=== PATIENT | male | born 1990 | race Caucasian/White ===

== ENCOUNTER 2020-06-15 01:08 | Emergency (ER) | payer MEDICAID, SELFPAY ==
[2020-06-15 01:44] VITALS: BP 135/88; BP 141/98; PULSE 109; PULSE 99; RESP 16; TEMP 36.3; O2SAT 92; BMI 33.4
--- NOTE | 2020-06-15 01:55 | ECG_ITS ---
Test Reason : OVERDOSE Blood Pressure : / mmHG Vent. Rate : 089 BPM Atrial Rate : 089 BPM P-R Int : 164 ms QRS Dur : 120 ms QT Int : 390 ms P-R-T Axes : 017 029 027 degrees QTc Int : 474 ms Normal sinus rhythm Non-specific intra-ventricular conduction delay Borderline ECG No previous ECGs available Referred By: Generic ED Physician Electronically Signed By:Bhavesh Barajas
[2020-06-15 02:10] LABS: Basophils Absolute Auto 0.1 X10*3/uL (0.0-0.2); Basophils Percent Auto 1.1 % (0-2); Eosinophils Absolute Auto 0.2 X10*3/uL (0.0-0.4); Eosinophils Percent Auto 1.6 % (0-4); Hematocrit 44.2 % (42-52); Hemoglobin 15.9 g/dl (14.0-18.0); Imm Gran Abs Auto 0.05 X10*3/uL (0.00-0.03); Imm Gran Pct Auto 0.5 % (0.0-0.4); Lymphocytes Absolute Auto 2.8 X10*3/uL (1.2-4.9); Lymphocytes Percent Auto 26.9 % (20-40); MANUAL DIFF FLAG NO; Mean Corpuscular Hemoglobin 30.5 pg (27.0-33.0); Mean Corpuscular Volume 84.8 fL (80-98); Mean Platelet Volume 11.3 fL (9.4-12.4); Monocytes Absolute Auto 0.9 X10*3/uL (0.1-1.2); Monocytes Percent Auto 8.4 % (2-11); Neutrophils Absolute Auto 6.4 X10*3/uL (2.0-8.3); Neutrophils Percent Auto 61.5 % (45-73); Platelet Count 241 X10*3/uL (160-400); Red Blood Count 5.21 X10*6/uL (4.60-5.80); Red Cell Distribution Width 12.5 % (11.0-16.0); White Blood Count 10.3 X10*3/uL (4.8-10.8)
[2020-06-15 02:36] LABS: Anion Gap 15 (12-20); Blood Urea Nitrogen 13 mg/dL (9-16); Calcium 8.8 mg/dL (8.4-10.2); Carbon Dioxide 21 mmol/L (22-29); Chloride 106 mmol/L (96-108); Creatinine Clr Calc Pharmacy 147.2; Estimated Glomerular Filt Rate > 60; Glucose Random 96 mg/dL (60-115); Sodium 138 mmol/L (135-145)
[2020-06-15 03:54] VITALS: BP 124/78; PULSE 86; RESP 14; O2SAT 95
[2020-06-15 04:16] LABS: Acetaminophen LAB < 1 mcg/mL (<30); Salicylate < 5.0 mg/dL (15-30)
--- NOTE | 2020-06-15 04:28 | ED_ITS ---
HPI - General Adult General Chief complaint: General Medical Stated complaint: od Time Seen by Provider: 06/15/20 03:29 Source: patient Mode of arrival: ambulatory Limitations: no limitations History of Present Illness HPI narrative: Patient comes to emergency room complaining oxyntic looking and extra Trileptal tablets of 200 mg and an additional nortriptyline tablet for 25 mg. Patient states that he lives alone, it was Biaxin, denies suicidal homicidal ideation, denies any symptoms. complaint: Accidental medication intake Related Data Allergies Allergy/AdvReac Type Severity Reaction Status Date / Time codeine [CODEINE] Allergy Unknown UNKNOWN Unverified 11/16/19 16:11 ibuprofen [From MOTRIN] Allergy Unknown UNKNOWN Unverified 11/16/19 16:11 Review of Systems Review of Systems: Constitutional : No Weight loss, No Fever, No Chills, No Night Sweats, No Fatigue, No Malaise ENT/Mouth : No Hearing loss, No Ear Pain, No Nasal Congestion, No Sinus Pain, No Hoarseness, No sore throat, No Rhinorrhea, No Swallowing Difficulty Eyes: No Eye Pain, No Swelling, No Redness, No Foreign Body, No Discharge, No Vision Changes Cardiovascular : No Chest Pain, No SOB, No Dyspnea on Exertion, No Orthopnea, No Edema, No Palpitations Respiratory : No Cough, No Sputum, No Wheezing, No Smoke Exposure, No Dyspnea Gastrointestinal : No Nausea, No Vomiting, No Diarrhea, No Constipation, No abdominal Pain, No Hematochezia, No Melena Genitourinary : no irregular bleeding, No Dysuria, No Urinary Frequency, No Hematuria, No Urinary Incontinence, No Urgency, No Flank Pain, No Urinary Flow Changes, No Hesitancy Musculoskeletal : No joint pain, No Myalgias, No Joint Swelling Skin : No Skin Lesions, No rash Neuro : No Weakness, No Numbness, No Paresthesias, No Loss of Consciousness, No Dizziness, No Headache Psych : No Anxiety/Panic, No Depression, No SI/HI/AH/VH, No Social Issues, Heme/Lymph: No Bruising, No Bleeding,No Lymphadenopathy Endocrine : No Polyuria, No Polydipsia, No Temperature Intolerance PMFSH Past Medical History Medical History Anxiety Autism Depression Social History Social History Advance Directives: No Advance Directives Information Provided: No Physical Exam Vital Signs: Vital Signs: Last Vital Signs Temp 97.4 F 06/15/20 01:44 Pulse 86 06/15/20 03:54 Resp 14 06/15/20 03:54 BP 124/78 06/15/20 03:54 Pulse Ox 95 06/15/20 03:54 Body Mass Index 33.4 Appearance: Alert. Oriented X3. No acute distress. Eyes: Pupils equal, round and reactive to light. ENT: Pharynx normal. Neck: Normal inspection. Neck supple. No lymph nodes noted. No crepitus CVS: Normal heart rate and rhythm. Pulses normal. Normal S1 and S2 Respiratory: No respiratory distress. Breath sounds normal. No Wheezing. No rales Abdomen: Soft and nontender. No rigidity. No distention. good BS x4 Skin: Skin warm and dry. Normal skin color. Normal skin turgor. Extremities: No lower extremity edema. No lower extremity edema. No Lacerations. No Rash Neuro: Oriented X 3. No motor deficit. No sensory deficit. Moving all extermities. No slurred speech. Course Course Course Narrative: I discussed the labs with the patient, acute findings. Patient will be discharged home. Medical Decision Making Lab Data Result diagrams: 06/15/20 02:05 06/15/20 02:05 Labs: Lab Results 06/15/20 06/15/20 06/15/20 Range/Units 02:05 02:05 02:05 WBC 10.3 (4.8-10.8) X10*3/uL RBC 5.21 (4.60-5.80) X10*6/uL Hgb 15.9 (14.0-18.0) g/dl Hct 44.2 (42-52) % MCV 84.8 (80-98) fL MCH 30.5 (27.0-33.0) pg MCHC 36.0 (31.0-36.0) g/dl RDW 12.5 (11.0-16.0) % Plt Count 241 (160-400) X10*3/uL MPV 11.3 (9.4-12.4) fL Immature Gran % (Auto) 0.5 H (0.0-0.4) % Neut % (Auto) 61.5 (45-73) % Lymph % (Auto) 26.9 (20-40) % [place] % (Auto) 8.4 (2-11) % Eos % (Auto) 1.6 (0-4) % Baso % (Auto) 1.1 (0-2) % Lymph # (Auto) 2.8 (1.2-4.9) X10*3/uL [place] # (Auto) 0.9 (0.1-1.2) X10*3/uL Eos # (Auto) 0.2 (0.0-0.4) X10*3/uL Baso # (Auto) 0.1 (0.0-0.2) X10*3/uL Abs Immat Gran (auto) 0.05 H (0.00-0.03) X10*3/uL Absolute Neuts (auto) 6.4 (2.0-8.3) X10*3/uL Absolute Nucleated RBC 0.000 (0.0-0.012) X10*3/uL Nucleated RBC % (auto) 0.0 (0.0-0.2) /100WBC Hold Blue Top SEE NOTE Sodium 138 (135-145) mmol/L Potassium 4.0 (3.3-5.1) mmol/L Chloride 106 (96-108) mmol/L Carbon Dioxide 21 L (22-29) mmol/L Anion Gap 15 (12-20) BUN 13 (9-16) mg/dL Creatinine 0.84 (0.5-1.4) mg/dL Estim Creat Clear Calc 147.2 Estimated GFR > 60 Random Glucose 96 (60-115) mg/dL Calcium 8.8 (8.4-10.2) mg/dL Salicylates < 5.0 L (15-30) mg/dL Acetaminophen < 1 (<30) mcg/mL ECG Data Attestation: I personally reviewed and interpreted this ECG as follows: (Sinus rhythm, heart rate 89, no ST segment depression or elevation, no T-wave inversion)
[2020-06-15 05:00] VITALS: BP 135/68; PULSE 93; RESP 13; O2SAT 96
[2020-06-15] MEDS: 0.9 % Sodium Chloride 1,000 ML 999 ML IV (05:04)
== END 2020-06-15 07:47 | disposition left against medical advice (07) ==
PROVIDERS: Emergency Provider Emergency Medicine
DX: T42.1X1A Poisoning by iminostilbenes, accidental (unintentional), initial encounter (principal); Y92.9 Unspecified place or not applicable; Z79.899 Other long term (current) drug therapy
CPT/HCPCS: 36415; 80048; 80143; 80179; 85025; 93005; 96360; 99284

== ENCOUNTER 2020-08-14 10:04 | Emergency (ER) | payer MEDICAID, SELFPAY ==
[2020-08-14 10:06] VITALS: BP 154/99; PULSE 104; RESP 20; TEMP 36.6; O2SAT 98; BMI 33.2
--- NOTE | 2020-08-14 11:00 | ED.PSYCH ---
HPI - Psych General Chief Complaint: Psychiatric Symptoms Stated Complaint: crisis Time Seen by Provider: 08/14/20 11:00 Source: patient Mode of arrival: ambulatory Limitations: no limitations History of Present Illness MD complaint: feels depressed and other (anxiety) Onset (ago): day(s) (1.5) Duration: constant History of same: Yes Relieving factors: none Exacerbating factors: other (states his mom's mood triggered him) Context: significant life stressor Associated psychiatric symptoms: depression Associated symptoms: denies other symptoms Treatments prior to arrival: none Related Data Home Medications Medication Instructions Recorded Confirmed clonidine HCl 1 tab PO TID 08/14/20 08/14/20 nortriptyline 2 cap PO DAILY 08/14/20 08/14/20 oxcarbazepine 1 tab PO TID 08/14/20 08/14/20 venlafaxine 1 cap PO DAILY 08/14/20 08/14/20 zolpidem 1 tab PO BEDTIME 08/14/20 08/14/20 Allergies Allergy/AdvReac Type Severity Reaction Status Date / Time codeine [CODEINE] Allergy Unknown UNKNOWN Verified 08/14/20 10:13 ibuprofen [From MOTRIN] Allergy Unknown UNKNOWN Verified 08/14/20 10:13 Review of Systems Review of Systems: Constitutional : No Fever, No Chills ENT/Mouth : No Ear Pain, No Nasal Congestion, No sore throat Eyes: No Eye Pain, No Swelling, No Redness Cardiovascular : No Chest Pain, No SOB Respiratory : No Cough, No Sputum, No Dyspnea Gastrointestinal : No Nausea, No Vomiting, No Diarrhea, No Hematochezia, No Melena Genitourinary : No Dysuria, No Urinary Frequency, No Hematuria Musculoskeletal : No Myalgias Skin : No Skin Lesions, No rash Neuro : No Weakness, No Numbness, No Paresthesias, No Dizziness, No Headache Psych : positive Anxiety, positive Depression, no SI/HI Heme/Lymph: No Lymphadenopathy Endocrine : No Polyuria, No Polydipsia All other systems reviewed and are negative [facility] Past Medical History Attestation statement: The following information was validated with the patient. Medical History Anxiety Autism Depression Social History Social History (Updated 08/14/20 @ 11:15 by Tayla Joseph DO) Alcohol intake: current Patient Tobacco Use Status: Never used Tobacco Advance Directives: No Advance Directives Information Provided: No Physical Exam Vital Signs: Vital Signs: Last Vital Signs Temp 97.4 F 08/14/20 11:38 Pulse 77 08/14/20 11:38 Resp 16 08/14/20 11:38 BP 130/89 08/14/20 11:38 Pulse Ox 98 08/14/20 11:38 Body Mass Index 33.2 Appearance: Alert. Oriented X3. No acute distress. Eyes: Pupils equal, round and reactive to light. ENT: Pharynx normal. Neck: Normal inspection. Neck supple. CVS: Normal heart rate and rhythm. Pulses normal. Respiratory: No respiratory distress. Breath sounds normal. Abdomen: Soft and nontender. Skin: Skin warm and dry. Normal skin color. Normal skin turgor. Extremities: No lower extremity edema. No calf ttp Neuro: Oriented X 3. No motor deficit. No sensory deficit. Psych: + anxiety, depression, no SI/HI Course Course Course Narrative: Physician observation started at 147pm. Patient placed in physician observation because the patient needed more time for crisis evaluation and to assess the need for psych admission. At the time observation was started the patient's vitals were stable, patient is alert and oriented Neuro: nonfocal, CV RRR, Lungs clear Physician observation ended at 241pm Patient seen and cleared by crisis. Plan is to follow up with therapist tomorrow. NAD, lungs clear, CV RRR, Abd nontender, Neuro intact. Disposition is for home. MDM - Psych MDM Narrative Medical decision making narrative: 30 yo male with autism, anxiety here with reported statements on FB no SI/HI, wants to talk to crisis - labs, BHN consult ordered Lab Data Result diagrams: 08/14/20 12:01 08/14/20 12:00 Labs: Lab Results 08/14/20 08/14/20 08/14/20 Range/Units 11:19 12:00 12:00 WBC (4.8-10.8) X10*3/uL RBC (4.60-5.80) X10*6/uL Hgb (14.0-18.0) g/dl Hct (42-52) % MCV (80-98) fL MCH (27.0-33.0) pg MCHC (31.0-36.0) g/dl RDW (11.0-16.0) % Plt Count (160-400) X10*3/uL MPV (9.4-12.4) fL Immature Gran % (Auto) (0.0-0.4) % Neut % (Auto) (45-73) % Lymph % (Auto) (20-40) % [place] % (Auto) (2-11) % Eos % (Auto) (0-4) % Baso % (Auto) (0-2) % Lymph # (Auto) (1.2-4.9) X10*3/uL [place] # (Auto) (0.1-1.2) X10*3/uL Eos # (Auto) (0.0-0.4) X10*3/uL Baso # (Auto) (0.0-0.2) X10*3/uL Abs Immat Gran (auto) (0.00-0.03) X10*3/uL Absolute Neuts (auto) (2.0-8.3) X10*3/uL Absolute Nucleated RBC (0.0-0.012) X10*3/uL Nucleated RBC % (auto) (0.0-0.2) /100WBC Sodium 135 (135-145) mmol/L Potassium 3.8 (3.3-5.1) mmol/L Chloride 106 (96-108) mmol/L Carbon Dioxide 22 (22-29) mmol/L Anion Gap 11 L (12-20) BUN 7 L (9-16) mg/dL Creatinine 0.81 (0.5-1.4) mg/dL Estim Creat Clear Calc 155.5 Estimated GFR > 60 Random Glucose 92 (60-115) mg/dL Calcium 9.2 (8.4-10.2) mg/dL Total Bilirubin 0.8 (0.0-1.0) mg/dL Direct Bilirubin 0.2 (0.0-0.5) mg/dL AST 23 (5-37) U/L ALT 44 H (0-40) U/L Alkaline Phosphatase 88 (39-117) U/L Total Protein 7.2 (6.5-8.0) g/dL Albumin 4.5 (3.5-5.0) g/dL Urine Opiates Screen Not Detected (Not Detect) Ur Barbiturates Screen Not Detected (Not Detect) Ur Phencyclidine Scrn Not Detected (Not Detect) Ur Amphetamines Screen Not Detected (Not Detect) U Benzodiazepines Scrn Not Detected (Not Detect) Urine Cocaine Screen Not Detected (Not Detect) U Marijuana (THC) Screen Not Detected (Not Detect) Ethyl Alcohol < 10 mg/dL COVID-19 ([facility]) (Negative) COVID-19 Clin Com 08/14/20 08/14/20 Range/Units 12:01 12:01 WBC 6.8 (4.8-10.8) X10*3/uL RBC 5.51 (4.60-5.80) X10*6/uL Hgb 16.7 (14.0-18.0) g/dl Hct 46.1 (42-52) % MCV 83.7 (80-98) fL MCH 30.3 (27.0-33.0) pg MCHC 36.2 H (31.0-36.0) g/dl RDW 12.9 (11.0-16.0) % Plt Count 266 (160-400) X10*3/uL MPV 10.9 (9.4-12.4) fL Immature Gran % (Auto) 0.4 (0.0-0.4) % Neut % (Auto) 57.8 (45-73) % Lymph % (Auto) 29.4 (20-40) % [place] % (Auto) 10.0 (2-11) % Eos % (Auto) 1.2 (0-4) % Baso % (Auto) 1.2 (0-2) % Lymph # (Auto) 2.0 (1.2-4.9) X10*3/uL [place] # (Auto) 0.7 (0.1-1.2) X10*3/uL Eos # (Auto) 0.1 (0.0-0.4) X10*3/uL Baso # (Auto) 0.1 (0.0-0.2) X10*3/uL Abs Immat Gran (auto) 0.03 (0.00-0.03) X10*3/uL Absolute Neuts (auto) 3.9 (2.0-8.3) X10*3/uL Absolute Nucleated RBC 0.000 (0.0-0.012) X10*3/uL Nucleated RBC % (auto) 0.0 (0.0-0.2) /100WBC Sodium (135-145) mmol/L Potassium (3.3-5.1) mmol/L Chloride (96-108) mmol/L Carbon Dioxide (22-29) mmol/L Anion Gap (12-20) BUN (9-16) mg/dL Creatinine (0.5-1.4) mg/dL Estim Creat Clear Calc Estimated GFR Random Glucose (60-115) mg/dL Calcium (8.4-10.2) mg/dL Total Bilirubin (0.0-1.0) mg/dL Direct Bilirubin (0.0-0.5) mg/dL AST (5-37) U/L ALT (0-40) U/L Alkaline Phosphatase (39-117) U/L Total Protein (6.5-8.0) g/dL Albumin (3.5-5.0) g/dL Urine Opiates Screen (Not Detect) Ur Barbiturates Screen (Not Detect) Ur Phencyclidine Scrn (Not Detect) Ur Amphetamines Screen (Not Detect) U Benzodiazepines Scrn (Not Detect) Urine Cocaine Screen (Not Detect) U Marijuana (THC) Screen (Not Detect) Ethyl Alcohol mg/dL COVID-19 ([facility]) Negative (Negative) COVID-19 Clin Com See Note Discharge Plan Discharge Clinical Impression: Acute anxiety Patient Disposition: Home, Self-Care Instructions: Anxiety (ED) Additional Instructions: return to ED for any worsening symptoms or concerns please follow up with your outpatient providers Prescriptions: No Action venlafaxine 37.5 mg capsule,extended release 24hr 1 cap PO DAILY RF: 0 clonidine HCl 0.1 mg tablet 1 tab PO TID RF: 0 oxcarbazepine 300 mg tablet 1 tab PO TID RF: 0 nortriptyline 25 mg capsule 2 cap PO DAILY RF: 0 zolpidem 10 mg tablet 1 tab PO BEDTIME RF: 0
[2020-08-14 11:38] VITALS: BP 130/89; PULSE 77; RESP 16; TEMP 36.3; O2SAT 98
[2020-08-14 12:04] LABS: Amphetamine Screen Urine Not Detected (Not Detect); Barbiturates, Urine Not Detected (Not Detect); Benzodiazepines Screen Urine Not Detected (Not Detect); Cannabinoid Screen Urine Not Detected (Not Detect); Cocaine Screen Urine Not Detected (Not Detect); Opiate Screen Urine Not Detected (Not Detect); Phencyclidine Screen Urine Not Detected (Not Detect)
[2020-08-14 12:05] LABS: MANUAL DIFF FLAG NO
[2020-08-14 12:07] LABS: Basophils Absolute Auto 0.1 X10*3/uL (0.0-0.2); Basophils Percent Auto 1.2 % (0-2); Eosinophils Absolute Auto 0.1 X10*3/uL (0.0-0.4); Eosinophils Percent Auto 1.2 % (0-4); Hematocrit 46.1 % (42-52); Hemoglobin 16.7 g/dl (14.0-18.0); Imm Gran Abs Auto 0.03 X10*3/uL (0.00-0.03); Imm Gran Pct Auto 0.4 % (0.0-0.4); Lymphocytes Percent Auto 29.4 % (20-40); Mean Corpuscular HGB Conc 36.2 g/dl (31.0-36.0); Mean Corpuscular Hemoglobin 30.3 pg (27.0-33.0); Mean Corpuscular Volume 83.7 fL (80-98); Mean Platelet Volume 10.9 fL (9.4-12.4); Monocytes Absolute Auto 0.7 X10*3/uL (0.1-1.2); Neutrophils Absolute Auto 3.9 X10*3/uL (2.0-8.3); Neutrophils Percent Auto 57.8 % (45-73); Platelet Count 266 X10*3/uL (160-400); Red Blood Count 5.51 X10*6/uL (4.60-5.80); Red Cell Distribution Width 12.9 % (11.0-16.0); White Blood Count 6.8 X10*3/uL (4.8-10.8)
--- NOTE | 2020-08-14 12:07 | PC.NURSE ---
BHN consult sent
[2020-08-14 12:29] LABS: Ethanol < 10 mg/dL
[2020-08-14 12:35] LABS: Alanine Aminotransferase 44 U/L (0-40); Albumin Level 4.5 g/dL (3.5-5.0); Alkaline Phosphatase 88 U/L (39-117); Anion Gap 11 (12-20); Aspartate Amino Transferase 23 U/L (5-37); Bilirubin Direct 0.2 mg/dL (0.0-0.5); Bilirubin Total 0.8 mg/dL (0.0-1.0); Blood Urea Nitrogen 7 mg/dL (9-16); Calcium 9.2 mg/dL (8.4-10.2); Carbon Dioxide 22 mmol/L (22-29); Chloride 106 mmol/L (96-108); Creatinine Clr Calc Pharmacy 155.5; Estimated Glomerular Filt Rate > 60; Glucose Random 92 mg/dL (60-115); Potassium 3.8 mmol/L (3.3-5.1); Sodium 135 mmol/L (135-145); Total Protein 7.2 g/dL (6.5-8.0)
[2020-08-14 12:38] LABS: COVID-19 Test Negative (Negative); IDNOW Serial# 08D9AD1C
--- NOTE | 2020-08-14 12:53 | MHC.CARE ---
Call from [facility] Brick Molder Hand, [place], clinician assigned to evaluate this patient is en route to hospital.
[2020-08-14 14:52] VITALS: BP 148/95; PULSE 95
[2020-08-14] MEDS: cloNIDine HCL 0.1 MG TABLET PO (14:52)
[2020-08-14] MEDS: OXcarbazepine 300 MG TABLET PO (14:53)
--- NOTE | 2020-08-14 15:41 | PC.NURSE ---
contact made to both mother and father regarding [employer]. message left with mom with patient permission. contact made with dad-per dad [employer] [phone]
--- NOTE | 2020-08-14 16:31 | PC.NURSE ---
confirmed dad is in waiting room. pt getting ready at this time.
== END 2020-08-14 16:37 | disposition home or self-care (01) ==
PROVIDERS: Emergency Provider Emergency Medicine; PCP Internal Medicine
DX: F41.9 Anxiety disorder, unspecified (principal); F32.9 Major depressive disorder, single episode, unspecified; F84.0 Autistic disorder; Z79.899 Other long term (current) drug therapy; Z20.822 Contact with and (suspected) exposure to COVID-19
CPT/HCPCS: 36415; 80048; 80076; 80307; 82077; 85025; 87635; 99284; 99285

== ENCOUNTER 2020-08-20 08:00 | Outpatient (RCR) | payer OTHER, SELFPAY ==
--- NOTE | 2020-08-20 07:49 | PC.NURSE ---
Client called out because he did not sleep at all last night. States he will be in tomorrow
== END 2020-08-21 08:18 | disposition home or self-care (01) ==
LOC: HO.PHPA 08:00
PROVIDERS: Visit Provider Psychiatry & Neurology Psychiatry
DX: F33.2 Major depressive disorder, recurrent severe without psychotic features (principal); F41.9 Anxiety disorder, unspecified; F84.0 Autistic disorder
CPT/HCPCS: 90791

== ENCOUNTER 2021-01-29 16:10 | Emergency (ER) | payer MEDICAID, SELFPAY ==
[2021-01-29 16:23] VITALS: BP 151/92; PULSE 135; RESP 20; TEMP 38.1; O2SAT 99; BMI 33.9
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
[2021-01-29 16:55] LABS: COVID-19 Test Negative (Negative)
[2021-01-29 18:00] VITALS: TEMP 37.1
[2021-01-29 18:02] LABS: Appearance Urine HAZY; Color Urine DK YELLOW; Glucose Urine UA NEG (NEG); Leukocyte Esterase Urine NEG (NEG); Nitrite Urine NEG (NEG); UACC Culture Trigger NO; Urine Blood NEG (NEG); Urine Ketones 5 MG/DL (NEG); Urine Protein 1+ MG/DL (NEG-TRACE)
[2021-01-29 18:18] LABS: Amorphous Sediment Urine TRACE /LPF; Amphetamine Screen Urine Not Detected (Not Detect); Barbiturates, Urine Not Detected (Not Detect); Benzodiazepines Screen Urine Not Detected (Not Detect); Cannabinoid Screen Urine Not Detected (Not Detect); Cocaine Screen Urine Not Detected (Not Detect); Fentanyl, urine Not Detected (Not Detect); Mucus Urine 2+ /LPF; Opiate Screen Urine Not Detected (Not Detect); Phencyclidine Screen Urine Not Detected (Not Detect); RBC Urine 0-2 /HPF (0); Squamous Epithelial Cell Urine TRACE /LPF; WBC Urine 0-2 /HPF (0-4)
[2021-01-29 21:14] VITALS: BP 148/118; PULSE 107; RESP 20; TEMP 36.6; O2SAT 96
[2021-01-29 21:27] VITALS: BP 148/118; PULSE 107
[2021-01-29] MEDS: cloNIDine HCL 0.1 MG TABLET PO (21:27)
[2021-01-29] MEDS: OXcarbazepine 300 MG TABLET PO (21:27)
[2021-01-29] MEDS: Zolpidem Tartrate 5 MG TABLET 10 MG PO (21:28)
[2021-01-29] MEDS: Nortriptyline HCl 25 MG CAPSULE PO (21:41)
[2021-01-29] MEDS: ALPRAZolam 0.5 MG TABLET PO (21:46)
[2021-01-30 05:47] VITALS: BP 158/99; PULSE 92; RESP 16; TEMP 36.6; O2SAT 100
--- NOTE | 2021-01-30 06:10 | PC.NURSE ---
Patient did struggle to fall sleep but overall slept well, no distress observed/reported, While awake patient was observed moving in and out of his room multiples times, behavior appears frustrated and upset, mood labile, affect flat, medication compliant, N cleared the patient for discharge family and patient aware, patient's father Shant will come to pick him up at 1000 am today, Shant can be reached at [phone], will continue to monitor.
[2021-01-30 08:16] VITALS: BP 148/104; PULSE 88
[2021-01-30] MEDS: OXcarbazepine 300 MG TABLET PO (08:16)
[2021-01-30] MEDS: cloNIDine HCL 0.1 MG TABLET PO (08:16)
[2021-01-30] MEDS: Venlafaxine HCl ER 37.5 MG CAP.ER.24H PO (08:19)
[2021-01-30] MEDS: Nortriptyline HCl 25 MG CAPSULE PO (08:19)
[2021-01-30 08:25] VITALS: BP 148/104; PULSE 88; TEMP 36.8; O2SAT 94
--- NOTE | 2021-01-30 08:31 | PC.NURSE ---
pt refused breakfast. pt is happy about being d/c home today. pt is requesting pancakes for breakfast.
[2021-01-30 09:26] VITALS: BP 148/98; PULSE 89
== END 2021-01-30 10:16 | disposition home or self-care (01) ==
PROVIDERS: Physician Assistant; Emergency Provider Emergency Medicine
DX: F31.9 Bipolar disorder, unspecified (principal); Z79.899 Other long term (current) drug therapy; Z20.822 Contact with and (suspected) exposure to COVID-19
CPT/HCPCS: 36415; 80307; 81001; 87635; 99284

== ENCOUNTER 2023-11-24 13:16 | Emergency (ER) | payer BC, OTHER, SELFPAY ==
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
[2023-11-24 13:23] VITALS: BP 138/105; PULSE 111; RESP 19; TEMP 36.6; O2SAT 98; BMI 31.6
[2023-11-24 13:34] LABS: MANUAL DIFF FLAG NO
[2023-11-24 13:42] LABS: Basophils Absolute Auto 0.1 X10*3/uL (0.0-0.2); Basophils Percent Auto 1.3 % (0-2); Eosinophils Absolute Auto 0.2 X10*3/uL (0.0-0.4); Eosinophils Percent Auto 2.3 % (0-4); Hematocrit 49.6 % (42.0-52.0); Hemoglobin 17.8 g/dl (14.0-18.0); Imm Gran Abs Auto 0.05 X10*3/uL (0.00-0.03); Imm Gran Pct Auto 0.5 % (0.0-0.4); Lymphocytes Absolute Auto 2.6 X10*3/uL (1.2-4.9); Lymphocytes Percent Auto 26.2 % (20-40); Mean Corpuscular HGB Conc 35.9 g/dl (31.0-36.0); Mean Corpuscular Hemoglobin 30.2 pg (27.0-33.0); Mean Corpuscular Volume 84.1 fL (80.0-98.0); Mean Platelet Volume 11.2 fL (9.4-12.4); Monocytes Absolute Auto 0.8 X10*3/uL (0.1-1.2); Monocytes Percent Auto 7.5 % (2-11); Neutrophils Absolute Auto 6.3 x10*3/uL (2.0-8.3); Neutrophils Percent Auto 62.2 % (45-73); Platelet Count 302 X10*3/uL (160-400); Red Cell Distribution Width 12.4 % (11.0-16.0); White Blood Count 10.1 X10*3/uL (4.8-10.8)
[2023-11-24 13:58] LABS: Acetaminophen LAB < 3 mcg/mL (<30); Salicylate < 5.0 mg/dL (15-30)
[2023-11-24 13:59] LABS: Alanine Aminotransferase 28 U/L (0-40); Albumin Level 4.7 g/dL (3.5-5.0); Alkaline Phosphatase 96 U/L (39-117); Anion Gap 13 (12-20); Aspartate Amino Transferase 19 U/L (5-37); Bilirubin Direct 0.2 mg/dL (0.0-0.5); Bilirubin Total 0.6 mg/dL (0.0-1.0); Blood Urea Nitrogen 10 mg/dL (9-16); Calcium 9.7 mg/dL (8.4-10.2); Carbon Dioxide 26 mmol/L (22-29); Chloride 104 mmol/L (96-108); Creatinine Clr Calc Pharmacy 120.9; Estimated Glomerular Filt Rate > 60; Ethanol < 10 mg/dL; Glucose Random 97 mg/dL (60-115); Magnesium 2.3 mg/dL (1.6-2.6); Sodium 139 mmol/L (135-145); Total Protein 7.9 g/dL (6.5-8.0)
[2023-11-24 14:50] VITALS: BP 146/87; PULSE 107; RESP 20; TEMP 37.2; O2SAT 98
--- NOTE | 2023-11-24 16:19 | MHC.CARE ---
Referral to [facility] was made.
== END 2023-11-24 14:50 | disposition home or self-care (01) ==
PROVIDERS: Physician Assistant; Emergency Provider Student in an Organized Health Care Education/Training Program; PCP Internal Medicine
DX: F32.A Depression, unspecified (principal); F84.0 Autistic disorder; F90.9 Attention-deficit hyperactivity disorder, unspecified type; Z79.899 Other long term (current) drug therapy
CPT/HCPCS: 36415; 80053; 80076; 80143; 80179; 80307; 82248; 83735; 85025; 99284; S9485

== ENCOUNTER 2023-12-06 08:15 | Outpatient (RCR) | payer OTHER, SELFPAY ==
[2023-11-29 12:01] VITALS: BMI 31.8
[2023-11-29 12:03] VITALS: BP 146/98; PULSE 96; TEMP 36.4
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
--- NOTE | 2023-12-02 17:24 | HO.PHP ---
Client's case has been opened and reviewed in team.
--- NOTE | 2023-12-07 10:37 | HO.PHP ---
PHP Admin, Janeen, informed the group that he will not be in attendance to program due to not feeling well. Faustino reported no safety concerns and will be in attendance to program tomorrow.
--- NOTE | 2023-12-08 15:09 | HO.PHP ---
PHP staff member received a phone call from Faustino stating that he won't be in attendance to program today due to not feeling well still. PHP staff member reminded him of our policy and informed him that due to it being his third day missed in program, we will need to discharge him. PHP staff member informed Faustino when he is feeling better, he can contact Janeen to have a reassessment completed. Faustino was receptive. PHP staff member collected the remainder of the discharge information. Please further review discharge summary for any additional information.
== END 2023-12-06 23:59 | disposition home or self-care (01) ==
LOC: HO.PHPA 08:15
PROVIDERS: Visit Provider Psychiatry & Neurology Psychiatry
DX: F32.9 Major depressive disorder, single episode, unspecified (principal); F41.9 Anxiety disorder, unspecified; F84.0 Autistic disorder
CPT/HCPCS: 90791; 90853

== ENCOUNTER 2024-01-20 01:49 | Emergency (ER) | payer OTHER, SELFPAY ==
[2024-01-20 02:00] VITALS: BP 141/97; BP 142/101; PULSE 107; PULSE 109; RESP 18; TEMP 36.7; O2SAT 96; O2SAT 97; BMI 28.2
[2024-01-20 02:01] VITALS: BP 141/97; PULSE 109; RESP 18; TEMP 36.7; O2SAT 96
[2024-01-20 02:25] LABS: Hematocrit 46.5 % (42.0-52.0); Hemoglobin 16.7 g/dl (14.0-18.0); Mean Corpuscular HGB Conc 35.9 g/dl (31.0-36.0); Mean Corpuscular Hemoglobin 30.6 pg (27.0-33.0); Mean Corpuscular Volume 85.2 fL (80.0-98.0); Mean Platelet Volume 11.1 fL (9.4-12.4); Platelet Count 241 X10*3/uL (160-400); Red Blood Count 5.46 X10*6/uL (4.60-5.80); Red Cell Distribution Width 12.9 % (11.0-16.0); White Blood Count 10.2 X10*3/uL (4.8-10.8)
[2024-01-20 02:26] LABS: Appearance Urine Clear; Color Urine Yellow; Glucose Urine UA Negative (Negative); Leukocyte Esterase Urine Negative (Negative); Nitrite Urine Negative (Negative); Specific Gravity - Urine 1.015 (1.005-1.025); Urine Blood Negative (Negative); Urine Ketones Negative (Negative); Urine Protein Negative (Neg-Trace)
[2024-01-20 02:38] LABS: Amphetamine Screen Urine Not Detected (Not Detect); Barbiturates, Urine Not Detected (Not Detect); Benzodiazepines Screen Urine POSITIVE (Not Detect); Buprenorphine Scr Not Detected (Not Detect); Cannabinoid Screen Urine Not Detected (Not Detect); Cocaine Screen Urine Not Detected (Not Detect); Fentanyl, urine Not Detected (Not Detect); Methadone Screen, Urine Not Detected (Not Detect); Opiate Screen Urine Not Detected (Not Detect); Oxycodone Screen Urine Not Detected (Not Detect); Phencyclidine Screen Urine Not Detected (Not Detect)
[2024-01-20 02:46] LABS: Alanine Aminotransferase 52 U/L (0-40); Albumin Level 4.5 g/dL (3.5-5.0); Alkaline Phosphatase 91 U/L (39-117); Anion Gap 13 (12-20); Aspartate Amino Transferase 30 U/L (5-37); Bilirubin Total 0.6 mg/dL (0.0-1.0); Blood Urea Nitrogen 12 mg/dL (9-16); Calcium 9.3 mg/dL (8.4-10.2); Carbon Dioxide 24 mmol/L (22-29); Chloride 106 mmol/L (96-108); Creatinine Clr Calc Pharmacy 122.3; Estimated Glomerular Filt Rate > 60; Ethanol < 10 mg/dL; Glucose Random 87 mg/dL (60-115); Potassium 3.9 mmol/L (3.3-5.1); Sodium 139 mmol/L (135-145); Total Protein 7.2 g/dL (6.5-8.0)
--- NOTE | 2024-01-20 03:33 | PC.NURSE ---
Patient HEIDY Lomeli FD from home where he resides with his parents for evaluation of auditory and visual hallucinations, anxiety after visiting his cousin. Patient denies SI/HI. Patient is calm and cooperative. Patient changed over into a pod attire, labs drawn and sent to lab, patient oriented to the behavioral pod unit/room. Patient is currently in bed sleeping, RR 18, resp even and unlabored, no s/s of distress noted.
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
--- NOTE | 2024-01-20 07:25 | PC.NURSE ---
Assumed care of patient at 0645, patient appears to be in no apparent distress this am, pt eating breakfast at this time, offers no complaints to this RN. Med rec completed and verified with pt. Continue plan of care for CARE team j carlos
[2024-01-20 07:29] VITALS: BP 147/109; PULSE 90; RESP 14; TEMP 36.1; O2SAT 99
[2024-01-20 08:24] VITALS: BP 147/109
[2024-01-20] MEDS: Valsartan 80 MG TABLET PO (08:24)
[2024-01-20] MEDS: OXcarbazepine 300 MG TABLET PO (08:25)
[2024-01-20] MEDS: Venlafaxine HCL 25 MG TABLET 18.75 MG PO (08:51)
[2024-01-20] MEDS: Nortriptyline HCl 25 MG CAPSULE 50 MG PO (08:51)
[2024-01-20 10:41] VITALS: BP 137/94; PULSE 90; RESP 14; TEMP 36.1; O2SAT 99
--- NOTE | 2024-01-20 12:12 | MHC.CARE ---
RAD Team completed a referral form and faxed it to [facility]. Care Team informed and documented on RAD Team log.
== END 2024-01-20 10:46 | disposition home or self-care (01) ==
PROVIDERS: Emergency Provider Emergency Medicine; PCP Internal Medicine
DX: F33.1 Major depressive disorder, recurrent, moderate (principal); F43.9 Reaction to severe stress, unspecified; F41.9 Anxiety disorder, unspecified; Z79.899 Other long term (current) drug therapy; Z51.81 Encounter for therapeutic drug level monitoring
CPT/HCPCS: 36415; 80053; 80307; 81003; 85027; 99285; S9485

== ENCOUNTER 2024-04-24 00:56 | Emergency (ER) | payer BC, OTHER, SELFPAY ==
[2024-04-24 00:59] VITALS: BP 158/94; PULSE 100; O2SAT 96
[2024-04-24 01:47] VITALS: BP 146/95; PULSE 114; RESP 18; TEMP 36.4; O2SAT 99; BMI 31.2
--- OUTSIDE RECORDS SUMMARY | 2024-04-24 01:57 | XMS_ITS | Encounter Summary ---
Author Organization [facility] Address [address] [place] [address] Phone Care Team Providers Care Compo Conveyor Operator Name Role Phone Guilherme Gannon MD Primary Care Provider [phone] Encounter Details Date Type Department Care Team (Late st Contact Info) Description 11/18/2009 Documentation EM Family Medicine [address] [place] [address] Family Medicine, Physician [address] [place], [place] [id number] Social History Tobacco Use Types Packs/Day Years Used Date Smoking Tobacco: Never Assessed Sex and Gender Information Value Date Recorded Sex Assigned at Not on file Legal Sex Male 4:41 PM EDT Gender Identity Not on file Sexual Orientation Not on file documented as of this encounter Plan of Treatment Not on file documented as of this encounter Visit Diagnoses Not on filedocumented in this encounter Care Teams Compo Conveyor Operator Relationship Specialty Start Date End Date Guilherme Gannon MD [address] [place] [address] [place] [address] PCP - General 10/09/16 05/19/22 documented as of this encounter
--- OUTSIDE RECORDS SUMMARY | 2024-04-24 01:57 | XMS_ITS | Continuity of Care Document ---
Author Organization [facility] Address [address] [address]- Care Team Providers Care Certified Personal Trainer Name Role Phone Yaz Tinoco MD Primary Care Physician [place] [facility] [place]/09[place] - 04/08/24 [facility] [address] [place], [place] [address] Attending Physician: Aurora Thornton Admitting Physician: AdmtrAurora Referring Physician: AdmtrAurora Encounter Type: Triage Allergies, Adverse Reactions, Alerts Substance Criticality Severity Reaction Reaction Severity Status codeine facial swelling hives Active Immunizations Given and Recorded Vaccine Date Status Refusal Reason influenza virus vaccine, inactivated 1 02/08/24 Gi mickey influenza virus vaccine, inactivated 02/05/23 Give n influenza virus vaccine, inactivated 01/02/22 Abel rded influenza virus vaccine, inactivated 2 02/03/21 Gi mickey influenza virus vaccine, inactivated 12/20/17 Abel rded influenza virus vaccine, inactivated 3 01/14/17 Re corded influenza virus vaccine, inactivated 01/24/16 Give n influenza virus vaccine, inactivated 01/07/15 Give n influenza virus vaccine, inactivated 4 12/01/11 Gi mickey influenza virus vaccine, inactivated 5 02/19/11 Gi mickey SARS-CoV-2(COVID-19)mRNA-LNP vac([id number]) 03/19/23 Recorded [id number] bivalent booster vax 01/02/22 Recorded SARS-CoV-2 (COVID-19) mRNA-1273 vaccine 02/18/21 G iven SARS-CoV-2 (COVID-19) mRNA-1273 vaccine 07/23/20 R ecorded SARS-CoV-2 (COVID-19) mRNA-1273 vaccine 06/25/20 R ecorded Influenza Virus Vaccine (oldterm) 6 12/17/19 Recor ded tetanus-diphtheria toxoids (Td) 7 02/15/18 Given tetanus/diphtheria/pertussis, acel(Tdap) 07/04/07 Given Menactra (oldterm) 8 08/26/06 Given Measles/Mumps/Rubella Virus Vaccine 9 11/14/00 Giv en Measles/Mumps/Rubella Virus Vaccine 10 09/14/94 Re corded Varicella Virus Vaccine 11 06/21/95 Given hepatitis B pediatric vaccine 12 05/30/90 Recorded hepatitis B pediatric vaccine 13 04/01/90 Given hepatitis B pediatric vaccine 14 01/29/90 Recorded 1Result Comment: [id number] 2Result Comment: [facility][NOTE 3] [id number] 3Result Comment: [02/05/2017] done by 4Admin Note: FLULAVAL 5Admin Note: given w/ o incident 6Result Comment: Done at [facility] 7Result Comment: [02/15/2018] [facility] [id number] 8Admin Note: pedi 9Admin Note: #2 see series scanned in 10Result Comment: [11/25/2012] pedi record 11Admin Note: pedi 12Result Comment: [11/25/2012] pedi record 13Admin Note: see scanned for series dates #3 14Result Comment: [11/25/2012] pedi record Medications Advil 200 mg oral tablet 2 tablet = 400 mg, By Mouth, Every 4 hours, 0 Refills, Maintenance, 02/19/11 2:13:21 PM EST Start Date: 02/19/11 Status: Ordered Repeat number: 1 ALPRAZolam 0.5 mg oral tablet 0.5 mg, 1, tablet, By Mouth, Daily, PRN, Refills 0, Maintenance, as needed for anxiety, 01/31/20 10:31:00 AM EST, Partial fill upon patient request if the prescription is for a schedule II opioid drug. Start Date: 01/31/20 Status: Ordered Repeat number: 1 Claritin 10 mg oral tablet 10 mg, 1, tablet, By Mouth, Daily, # 30 tablet, Refills 0, Maintenance, 06/12/15 3:43:08 PM EDT Start Date: 06/12/15 Status: Ordered Quantity: 30.0 Unit: tablet Repeat number: 1 cloNIDine 0.1 mg oral tablet 0.1 mg, 1, tablet, By Mouth, 3 times a day, Refills 0, Maintenance, 06/12/15 3:45:06 PM EDT Start Date: 06/12/15 Status: Ordered Repeat number: 1 fluticasone 50 mcg/inh nasal spray See Instructions, USE 1 SPRAY IN EACH NOSTRIL TWICE A DAY FOR 14 DAYS, # 16 mL, 0 Refills, [facility], 30, USE 1 SPRAY IN EACH NOSTRIL TWICE A DAY FOR 14 DAYS, 180.3, cm, 07/02/21 14:21:00 EDT, Height Start Date: 07/16/21 Status: Ordered Quantity: 16.0 Unit: mL Repeat number: 1 nortriptyline 25 mg oral capsule 50 mg, 2, capsule, By Mouth, Daily, Refills 0, Maintenance, 01/24/16 3:05:56 PM EST Start Date: 01/24/16 Status: Ordered Repeat number: 1 OXcarbazepine 300 mg oral tablet 300 mg, 1, tablet, By Mouth, 3 times a day, Refills 0, Maintenance, 02/16/19 2:59:00 PM EST Start Date: 02/16/19 Status: Ordered Repeat number: 1 valsartan 80 mg oral tablet 1, tablet, By Mouth, Daily, # 90 tablet, Refills 3, Tot. Refills 3, Maintenance, 02/08/24 11:00:00 AM EST, Route to Pharmacy Electronically, [facility]/pharmacy #[id number], 159, cm, 02/08/24 10:32:00 EST, Height, 100.1, kg, 02/08/24 10:32:00 EST, Dry Weight Start Date: 02/08/24 Status: Ordered Quantity: 90.0 Unit: tablet Repeat number: 4 venlafaxine 37.5 mg oral capsule, extended release 0.5 capsule = 18.75 mg, By Mouth, Daily, # 30 capsule, 0 Refills, Maintenance, 02/03/21 2:50:00 PM EST, ER Capsule, Partial fill upon patient request if the prescription is for a schedule II opioid drug. Start Date: 02/03/21 Status: Ordered Quantity: 30.0 Unit: capsule Repeat number: 1 zolpidem 10 mg oral tablet 1 tablet = 10 mg, By Mouth, Daily at bedtime, PRN Sleep, 0 Refills, Maintenance, 06/12/15 3:44:53 PMEDT, Tablet Start Date: 06/12/15 Status: Ordered Repeat number: 1 Problem List Condition Confirmation Course Effective Dates Status Health St at[facility] Informant Asperger's syndrome Confirmed Active Autism Confirmed Active Hypertension Confirmed Active Severe obesity (BMI 35.0-39.9) with comorbidity Confirmed Active Social History Social History Type Response Smoking Status Never smoker entered on: 12/05/13 Sex Sex Representation Male (finding) Laboratory * Event Display: Non BH Lab Results Authored Date: * Event Display: Non Lab Results Authored Date: Radiology * Event Display: Radiology Result Scanned Authored Date: * Event Display: Radiology Result Scanned Authored Date: Patient Care team information Care Team Personnel Name: Alejandrina NICE, Yaz Donis Position: [facility] Physician - Primary Care Member Role: PCP Address: [address] [place] [address] Adult & Pediatric [address] Telecom: Care Team Related Persons Name: MAGDALENO BURNS Insurance Providers Guarantor name: JASVIR BURNS Health Plan Information #: 1 Payer: [facility] Member Number: NA Policy Number: NA Group Number: NA Health Plan Information #: 2 Payer: [facility] Member Number: NA Policy Number: NA Group Number: NA
--- OUTSIDE RECORDS SUMMARY | 2024-04-24 01:57 | XMS_ITS | Continuity of Care Document ---
Author Organization [facility] Address [address] [place] [address]- Care Team Providers Care Vocational Adviser Name Role Phone Yaz Tinoco MD Primary Care Physician [phone] Encounter [facility] Date(s): 03/08/24 - 04/07/24 [facility] [address] [place], [place] [address] Encounter Type: Triage Allergies, Adverse Reactions, Alerts [...] vaccine, inactivated 5 02/19/11 Gi mickey SARS-CoV-2(COVID-19)mRNA-LNP vac(ava182) 03/19/23 Recorded [id number] bivalent booster vax 01/02/22 Recorded SARS-CoV-2 (COVID-19) [...] pediatric vaccine 14 01/29/90 Recorded 1Result Comment: [id number] 2Result Comment: [facility] [id number] 3Result Comment: [02/05/2017] done by 4Admin Note: FLULAVAL 5Admin Note: given w/ o incident 6Result Comment: Done at [facility] 7Result Comment: [02/15/2018] [facility] [id number] 8Admin Note: pedi 9Admin Note: #2 see [...] 14 DAYS, # 16 mL, 0 Refills, [id number], 30, USE 1 SPRAY IN EACH NOSTRIL [...] 11:00:00 AM EST, Route to Pharmacy Electronically, [facility]/pharmacy #[id number], 159, cm, 02/08/24 10:32:00 EST, [...] on: 12/05/13 Sex Sex Representation Male (finding) Patient Care team information Care Team Personnel Name: Alejandrina NICE, Yaz Donis Position: [facility] Physician - Primary Care Member Role: PCP Address: [address] [place] [address] Adult & Pediatric [address] Telecom: Care Team Related Persons Name: MAGDALENO BURNS Insurance Providers Guarantor name: JASVIR BURNS Health Plan Information #: 1 Payer: [facility] Member Number: NA Policy Number: NA Group Number: NA Health Plan Information #: 2 Payer: [facility] Member Number: NA Policy Number: NA Group Number: NA
--- OUTSIDE RECORDS SUMMARY | 2024-04-24 01:57 | XMS_ITS | Encounter Summary ---
Author Organization [facility] Address [address] [place] [address] Phone Care Team Providers Care Waffle Machine Operator Name Role Phone Guilherme Gannon MD Primary Care Provider [phone] Encounter Details Date Type Department Care Team (Late st Contact Info) Description 08/28/2010 Documentation EM Family Medicine [address] [place] [address] Family Medicine, Physician [address] [place], [place] [phone] Social History Tobacco Use Types Packs/Day Years [...] on filedocumented in this encounter Care Teams Waffle Machine Operator Relationship Specialty Start Date End Date Guilherme Gannon MD [address] [place] [address] [place] [address] PCP - General 10/09/16 05/19/22 documented as of this encounter
--- OUTSIDE RECORDS SUMMARY | 2024-04-24 01:57 | XMS_ITS | Encounter Summary ---
Author Organization [facility] Address [address] [place] [address] Phone Care Team Providers Care Fisher Seal Name Role Phone Guilherme Gannon MD Primary Care Provider [phone] Encounter Details Date Type Department Care Team (Late st Contact Info) Description 10/15/2016 Conversion Encounter [facility] [address] [place] [address] Social History Tobacco Use Types Packs/Day Years [...] on filedocumented in this encounter Care Teams Fisher Seal Relationship Specialty Start Date End Date Guilherme Gannon MD [address] [place] [address] PCP - General 10/09/16 05/19/22 documented as of this encounter
--- OUTSIDE RECORDS SUMMARY | 2024-04-24 01:57 | XMS_ITS | Encounter Summary ---
Author Organization [facility] Address [address] [place] [address] Phone Care Team Providers Care Gleason Gear Generator Name Role Phone Guilherme Gannon MD Primary Care Provider [phone] Encounter Details Date Type Department Care Team (Late st Contact Info) Description 07/06/2011 Documentation EM Family Medicine [address] [place] [address] Family Medicine, Physician [address] [place], [place] [phone] Social History Tobacco Use Types Packs/Day Years [...] on filedocumented in this encounter Care Teams Gleason Gear Generator Relationship Specialty Start Date End Date Guilherme Gannon MD [address] [place] [address] [place] [address] PCP - General 10/09/16 05/19/22 documented as of this encounter
--- OUTSIDE RECORDS SUMMARY | 2024-04-24 01:57 | XMS_ITS | Encounter Summary ---
Author Organization [facility] Address [address] [place] [address] Phone Care Team Providers Care Savings Counselor Name Role Phone Guilherme Gannon MD Primary Care Provider [phone] Encounter Details Date Type Department Care Team (Late st Contact Info) Description 12/16/2011 Documentation EM Family Medicine [address] [place] [address] Family Medicine, Physician [address] [place], [place] [phone] Social History Tobacco Use Types Packs/Day Years [...] on filedocumented in this encounter Care Teams Savings Counselor Relationship Specialty Start Date End Date Guilherme Gannon MD [address] [place] [address] [place] [address] PCP - General 10/09/16 05/19/22 documented as of this encounter
--- OUTSIDE RECORDS SUMMARY | 2024-04-24 01:57 | XMS_ITS | Clinical Summary ---
Author Organization [facility] Address [address] [place] [address] Phone Care Team Providers Care Reel Operator Name Role Phone Unavailable Primary Care Provider Unavailabl e Immunizations Immunization Administration Dates Next Due DTP 09/14/1994, 1,02/07/1990,11/04,1989 Hep B, ped/adol 05/30/1990,04/01/1990,01/29/1990 Hib (PRP-T) 11/04/1990 Influenza Split 12/13/2009 MMR 09/14/1994,11/14/1990 Meningococcal Conj (Menactra) MCV4P 08/26/2006 OPV 09/14/1994, 1,1989,08/30 Td (adult) (MBL), 2 Lf tetan us toxoid, PF, adsorbed 08/17/2001 Tdap 07/04/2007 Varicella 07/03/2008,06/21/1995 Family History Relation Name Status Comments Other No family histo ry of Developmental dislocation of hip, Family history of Autism, No family history of Asthma, No family history of Obesity, No family history of Diabetes mellitus, No family history of Deafness, No family history of Sudden /[place] under age 55, No family history of Seizure disorder, No family history of ADD/ADHD, No family history of Migraines, Family history of Strabismus/amblyopia, No family history of Elevated cholesterol Social History Tobacco Use Types Packs/Day Years Used Date Smoking Tobacco: Never Assessed Sex and Gender Information Value Date Recorded Sex Assigned at Not on file Legal Sex Male 4:41 PM EDT Gender Identity Not on file Sexual Orientation Not on file Last Filed Vital Signs Vital Sign Reading Time Taken Comments Blood Pressure 120/70 07/05/2009 12:00 AM EDT Pulse - - Temperature 36.1 ??C (96.9 ??F) 02/10/2010 12:[address] Respiratory Rate - - Oxygen Saturation - - Inhaled Oxygen Concentration - - Weight 88.9 kg (196 lb) 02/10/2010 12:00 AM EST Height 174.6 cm (5' 8.75 ) 07/05/2009 12:00 AM E DT Body Mass Index 29.15 07/05/2009 12:00 AM EDT Plan of Treatment Health Maintenance Due Date Last Done Comments DTaP,Tdap,and Td Vaccines (7 - Td or Tdap) 07/03/2017 07/04/2007, 08/17/2001, 09/14/1994, Additional history exists Influenza Vaccines (#1) 2023 12/13/2009 COVID-19 Vaccine ( season) 2023 Hepatitis B Vaccines Completed 05/30/1990, 04/01/1990, 01/29/1990 HIB Vaccines Completed 11/04/1990 IPV Vaccines Completed 09/14/1994, 12/30, 1989, Additional history exists MMR Vaccines Completed 09/14/1994, 11/14/1990 Meningococcal Vaccine Completed 08/26/2006 Varicella Vaccines Completed 07/03/2008, 06/21/1995 HPV Vaccines Aged Out No longer eligi ble based on patient's age to complete this topic Hepatitis A Vaccines Aged Out No long er eligible based on patient's age to complete this topic Men B Vaccine Aged Out No longer elig ible based on patient's age to complete this topic Pneumococcal Vaccine Aged Out No long er eligible based on patient's age to complete this topic
--- OUTSIDE RECORDS SUMMARY | 2024-04-24 01:57 | XMS_ITS | Encounter Summary ---
Author Organization [facility] Address [address] [place] [id number] Phone Care Team Providers Care Forecast Analyst Name Role Phone Guilherme Gannon MD Primary Care Provider [phone] Encounter Details Date Type Department Care Team (Late st Contact Info) Description 08/28/2010 Documentation EM Family Medicine [address] [place] [address] Family Medicine, Physician [address] [place], [place] [id number] Social History Tobacco Use Types Packs/Day Years [...] on filedocumented in this encounter Care Teams Forecast Analyst Relationship Specialty Start Date End Date Guilherme Gannon MD [address] [place] [address] [place] [address] PCP - General 10/09/16 05/19/22 documented as of this encounter
--- OUTSIDE RECORDS SUMMARY | 2024-04-24 01:57 | XMS_ITS | Encounter Summary ---
Author Organization [facility] Address [address] [place] [id number] Phone Care Team Providers Care Maintenance Specialist Name Role Phone Guilherme Gannon MD Primary Care Provider [phone] Encounter Details Date Type Department Care Team (Late st Contact Info) Description 12/17/2010 Documentation EM Family Medicine [address] [place] [address] Family Medicine, Physician [address] [place], [place] [id number] Social History Tobacco Use Types Packs/Day Years [...] on filedocumented in this encounter Care Teams Maintenance Specialist Relationship Specialty Start Date End Date Guilherme Gannon MD [address] [place] [address] [place] [address] PCP - General 10/09/16 05/19/22 documented as of this encounter
--- NOTE | 2024-04-24 02:40 | ED_ITS ---
HPI - Psych General Chief Complaint: Psychiatric Symptoms Stated Complaint: Depression, stress, medication mix up Time Seen by Provider: 04/24/24 02:14 Source: patient Mode of arrival: ambulatory Limitations: no limitations History of Present Illness ED Provider: Dr. Angelina Benson HPI Narrative: Patient comes to the emergency room complaining of depression. Patient states that he is not SI or HI. Patient states that the room was going around his neighborhood that he is interacting inappropriately with children. Patient is adamant that this is incorrect and it is making him depressed. Patient also states that he is taking his medications as prescribed but believes it is not doing much for him and would like to have his medications readjusted. Patient denies alcohol abuse. Patient states that he used gummies earlier today. Patient also admits that he has been having mood swings. Related Data Home Medications ?Medication ?Instructions ?Recorded ?Confirmed alprazolam 0.5 mg tablet 1.5 tab PO DAILY PRN Anxiety 01/29/21 01/20/24 nortriptyline 25 mg capsule 50 cap PO DAILY 01/29/21 01/20/24 oxcarbazepine 300 mg tablet 1 tab PO TID 01/29/21 01/20/24 zolpidem 10 mg tablet 1 tab PO BEDTIME Insomnia 01/29/21 01/20/24 valsartan 80 mg capsule 80 mg PO DAILY 11/30/23 01/20/24 venlafaxine 37.5 mg tablet 18.75 mg PO DAILY 01/20/24 01/20/24 Allergies Allergy/AdvReac Type Severity Reaction Status Date / Time codeine [CODEINE] Allergy Unknown UNKNOWN Verified 04/24/24 01:49 ibuprofen [From MOTRIN] Allergy Unknown UNKNOWN Verified 04/24/24 01:49 Review of Systems Review of Systems: Constitutional : No Weight loss, No Fever, No Chills, No Night Sweats, No Fatigue, No Malaise ENT/Mouth : No Hearing loss, No Ear Pain, No Nasal Congestion, No Sinus Pain, No Hoarseness, No sore throat, No Rhinorrhea, No Swallowing Difficulty Eyes: No Eye Pain, No Swelling, No Redness, No Foreign Body, No Discharge, No Vision Changes Cardiovascular : No Chest Pain, No SOB, No Dyspnea on Exertion, No Orthopnea, No Edema, No Palpitations Respiratory : No Cough, No Sputum, No Wheezing, No Smoke Exposure, No Dyspnea Gastrointestinal : No Nausea, No Vomiting, No Diarrhea, No Constipation, No abd ominal Pain, No Hematochezia, No Melena Genitourinary : no irregular bleeding, No Dysuria, No Urinary Frequency, No Hematuria, No Urinary Incontinence, No Urgency, No Flank Pain, No Urinary Flow Changes, No Hesitancy Musculoskeletal : No joint pain, No Myalgias, No Joint Swelling Skin : No Skin Lesions, No rash Neuro : No Weakness, No Numbness, No Paresthesias, No Loss of Consciousness, No Dizziness, No Headache Psych : No Anxiety/Panic, complaining of depression, no SI no HI Heme/Lymph: No Bruising, No Bleeding,No Lymphadenopathy Endocrine : No Polyuria, No Polydipsia, No Temperature Intolerance PMFSH Past Medical History Medical History Hypertension Flat feet Anxiety Depression Autism Social History Social History Household Members: Family Alcohol intake: never Patient Tobacco Use Status: Never used Tobacco Substance Use Type: Marijuana Advance Directives: No Advance Directives Information Provided: Yes Physical Exam Vital Signs: Vital Signs: Last Vital Signs Temp 97.6 F 04/24/24 01:47 Pulse 114 H 04/24/24 01:47 Resp 18 04/24/24 01:47 BP 146/95 H 04/24/24 01:47 Pulse Ox 99 04/24/24 01:47 O2 Del Method Room Air 04/24/24 01:47 BMI result Body Mass Index 31.2 Const: Other: Appearance: Alert. Oriented X3. No acute distress. Eyes: Pupils equal, round and reactive to light. ENT: Pharynx normal. Neck: Normal inspection. Neck supple. No lymph nodes noted. No crepitus CVS: Normal heart rate and rhythm. Pulses normal. Normal S1 and S2 Respiratory: No respiratory distress. Breath sounds normal. No Wheezing. No rales Abdomen: Soft and nontender. No rigidity. No distention. Skin: Skin warm and dry. Normal skin color. Normal skin turgor. Extremities: No lower extremity edema. No Lacerations. No Rash Neuro: Oriented X 3. No motor deficit. No sensory deficit. Moving all extremities. No slurred speech. CN 2 through 12 grossly intact Psych: calm, cooperative, normal affect Course Course Course Narrative: -all of patient's labs spent -care team consult [place] -patient is not SI or HI, patient is here voluntarily, section 12 not indicated Medical Decision Making Differential Diagnosis Differential Diagnoses: The differential diagnosis associated with the presentation includes (Anxiety, paranoia, depression) Discharge Plan Discharge Clinical Impression: Depression Patient Disposition: Still a Patient Prescriptions: No Action oxcarbazepine 300 mg tablet 1 tab PO TID alprazolam 0.5 mg tablet 1.5 tab PO DAILY PRN (Reason: Anxiety) zolpidem 10 mg tablet 1 tab PO BEDTIME nortriptyline 25 mg capsule 50 cap PO DAILY valsartan 80 mg Capsule 80 mg PO DAILY venlafaxine 37.5 mg tablet 18.75 mg PO DAILY Print Language: Macedonian
[2024-04-24 02:49] LABS: MANUAL DIFF FLAG NO
[2024-04-24 02:51] LABS: Basophils Absolute Auto 0.1 X10*3/uL (0.0-0.2); Basophils Percent Auto 1.3 % (0-2); Eosinophils Absolute Auto 0.3 X10*3/uL (0.0-0.4); Eosinophils Percent Auto 3.6 % (0-4); Hematocrit 43.7 % (42.0-52.0); Hemoglobin 16.2 g/dl (14.0-18.0); Imm Gran Abs Auto 0.04 X10*3/uL (0.00-0.03); Imm Gran Pct Auto 0.4 % (0.0-0.4); Lymphocytes Absolute Auto 2.7 X10*3/uL (1.2-4.9); Lymphocytes Percent Auto 28.6 % (20-40); Mean Corpuscular HGB Conc 37.1 g/dl (31.0-36.0); Mean Corpuscular Hemoglobin 30.7 pg (27.0-33.0); Mean Corpuscular Volume 82.9 fL (80.0-98.0); Monocytes Absolute Auto 0.7 X10*3/uL (0.1-1.2); Monocytes Percent Auto 7.3 % (2-11); Neutrophils Absolute Auto 5.6 x10*3/uL (2.0-8.3); Neutrophils Percent Auto 58.8 % (45-73); Platelet Count 229 X10*3/uL (160-400); Red Blood Count 5.27 X10*6/uL (4.60-5.80); White Blood Count 9.6 X10*3/uL (4.8-10.8)
[2024-04-24 03:06] LABS: Amphetamine Screen Urine Not Detected (Not Detect); Barbiturates, Urine Not Detected (Not Detect); Benzodiazepines Screen Urine POSITIVE (Not Detect); Buprenorphine Scr Not Detected (Not Detect); Cannabinoid Screen Urine POSITIVE (Not Detect); Cocaine Screen Urine Not Detected (Not Detect); Fentanyl, urine Not Detected (Not Detect); Methadone Screen, Urine Not Detected (Not Detect); Opiate Screen Urine Not Detected (Not Detect); Oxycodone Screen Urine Not Detected (Not Detect); Phencyclidine Screen Urine Not Detected (Not Detect)
[2024-04-24 03:14] LABS: Acetaminophen LAB 26 mcg/mL (<30); Salicylate < 5.0 mg/dL (15-30)
[2024-04-24 03:25] LABS: Alanine Aminotransferase 31 U/L (0-40); Anion Gap 14 (12-20); Aspartate Amino Transferase 24 U/L (5-37); Bilirubin Total 0.4 mg/dL (0.0-1.0); Blood Urea Nitrogen 8 mg/dL (9-16); Calcium 8.8 mg/dL (8.4-10.2); Carbon Dioxide 23 mmol/L (22-29); Chloride 104 mmol/L (96-108); Creatinine Clr Calc Pharmacy 140.4; Estimated Glomerular Filt Rate > 60; Ethanol < 10 mg/dL; Glucose Random 92 mg/dL (60-115); Potassium 3.5 mmol/L (3.3-5.1); Sodium 137 mmol/L (135-145); Total Protein 7.1 g/dL (6.5-8.0)
[2024-04-24 03:38] LABS: Alkaline Phosphatase 80 U/L (39-117)
--- NOTE | 2024-04-24 10:03 | PHA.MEDREC ---
Pharmacy Consult ? Medication Reconciliation Pharmacy has completed the medication reconciliation. Patient brought in RX bottles of his medications. Patient confirmed alprazolam and valsartan as well.
--- NOTE | 2024-04-24 10:34 | MHC.CARE ---
Patient evaluated by the CARE Team, he does not require an inpatient admission at the time. Dr. Wilson updated and in agreement with plan to discharge.
[2024-04-24 11:20] VITALS: BP 146/95; PULSE 114; RESP 18; TEMP 36.4; O2SAT 99
--- NOTE | 2024-04-24 12:47 | MHC.CARE ---
Ref[place] [facility] [place] [facility] [place].
== END 2024-04-24 11:21 | disposition home or self-care (01) ==
PROVIDERS: Emergency Provider Emergency Medicine; PCP Internal Medicine
DX: F32.A Depression, unspecified (principal); F41.9 Anxiety disorder, unspecified; F34.89 Other specified persistent mood disorders; F90.9 Attention-deficit hyperactivity disorder, unspecified type; I10 Essential (primary) hypertension; F12.90 Cannabis use, unspecified, uncomplicated; Z79.899 Other long term (current) drug therapy
CPT/HCPCS: 36415; 80053; 80143; 80179; 80307; 85025; 99284; 99285; S9485

== ENCOUNTER 2024-06-20 09:15 | Outpatient (RCR) | payer BC, OTHER, SELFPAY ==
[2024-06-08 09:41] VITALS: BMI 35.4
[2024-06-08 09:42] VITALS: BP 120/84; PULSE 96; TEMP 36.4
--- NOTE | 2024-06-08 14:18 | HO.PHP ---
Client's case has been opened and reviewed in team.
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
--- NOTE | 2024-06-13 22:32 | HO.PHPPROGNO ---
Subjective Subjective Date of Service: 06/13/24 Reason For Visit: depression,anxiety Interim History: ?Doing pretty good? Reports feeling a bit anxious but has bandage to get outside and go for walks He reports the Vraylar is ?going really good... I think I should stay on it permanently?. He had increased his dose to 3 mg daily, denies any adverse effects feels it is well tolerated. He reports having had an appointment to meet up with his provider Garfield Nelson and updated him on the medication change. He reports his mood as ?totally happy?. He denies any issues with irritability or anger. He He reports sleep being and appetite are intact energy is stable denies any symptoms suggestive of shanika or psychosis. He is home with family who are supportive. Medication Compliance: Yes Side effects from medications: No Attending Groups: Yes Review of Systems Acute medical concerns: No Mental Status Exam Mental Status Exam Narrative: Alert, oriented, in no acute distress. Calm, cooperative, engaged, animated. No psychomotor agitation or neurovegetative retardation. Eye contact maintained. Mood euthymic, animated, affect bright, variable, mood congruent, no irritability noted. Speech talkative without pressured speech. Thought process linear, coherent, expansive. Thought content related to stressors, denies any hopelessness or SI. Denies any aggressive ideation or HI. No paranoia or delusional content elicited. No evidence of psychosis. Insight and judgment - fair but adequate. Diagnostics Vital Signs (24Hr): BMI result Body Mass Index 35.4 Assessment & Plan Assessment & Plan (1) Autism spectrum: Status: Acute Code(s): F84.0 - Autistic disorder (2) Attention-deficit hyperactivity disorder, unspecified type: Status: Acute Code(s): F90.9 - Attention-deficit hyperactivity disorder, unspecified type (3) Other specified persistent mood disorders: Status: Acute Code(s): F34.89 - Other specified persistent mood disorders Plan Admit to [facility] VS reviewed: afebrile, BP 120/84;?96 bpm continue Vraylar 3 mg qam continue other regular medications: venlafaxine 25 mg qd nortriptyline 50 mg qd clonidine 0.1 mg (1 tab in AM/ 2 tabs at HS) oxcarbazepine?300 mg in AM/ 600 mg at HS alprazolam 0.75 mg qd prn anxiety zolpidem 5 mg qhs prn Valsartan 160 mg qd loratadine 10 mg qd Routine lab work ordered as indicated EKG, routine for baseline QTc for medication considerations as indicated UDS as indicated MassPat reviewed Continue to monitor as per protocol Patient educated on: diagnosis, medication risk/benefits and substance abuse Informed Consent: understands Reason for contiued partial hosp. stay Substantial Risk for: med/psych decompensation Certification I certify that partial hospital treatment is medically necessary due to the symptoms and problems resulting from the patient's mental illness and the failure to treat the patient at the partial hospital level of care would likely result in the patient requiring inpatient psychiatric care which could not be prevented at a less intensive level of care. Total time managing care of this patient today __30__ minutes. Discharge Plan Discharge Attending provider: Remedios Joe Medications: New cariprazine 3 mg capsule 3 mg PO DAILY Qty: 30 0RF No Action oxcarbazepine 300 mg tablet See Rx Instructions .ROUTE .COMPLEX Rx Instructions: Take one tab in the morning and two tabs at bedtime. alprazolam 0.5 mg tablet 1.5 tab PO DAILY PRN (Reason: Anxiety) zolpidem 10 mg tablet 1 tab PO BEDTIME nortriptyline 25 mg capsule 50 cap PO DAILY clonidine HCl 0.1 mg tablet See Rx Instructions .ROUTE .COMPLEX Rx Instructions: Take one tab in the morning and two tabs at bedtime. venlafaxine 25 mg tablet 25 mg PO DAILY valsartan 160 mg Tablet 160 mg PO DAILY Vraylar 1.5 mg Capsule 1.5 mg PO DAILY loratadine 10 mg Capsule 10 mg PO DAILY Print Language: Kinyarwanda
--- NOTE | 2024-06-15 18:32 | HO.PHPPROGNO ---
Subjective Subjective Date of Service: 06/15/24 Reason For Visit: depression,anxiety Interim History: Met with patient per patient request. Reports feeling very tired sleepy and asks that we review his medication. He also pulls up a text from his father stating that it is his venlafaxine that he is usually put on during the winter months for seasonal affective disorder. Typically this medication is discontinued heading into the spring and summer as apparently it has caused him lethargy in the past when continued on beyond the winter we agree to discontinue the medication. he reports his mood is good denies any irritability or lability. Denies any anxiety, energy is low, sleep appetite are intact. Denies SI HI AH or VH. Medication Compliance: Yes Side effects from medications: Yes (as noted above) Attending Groups: Yes Review of Systems Acute medical concerns: No Mental Status Exam Mental Status Exam Narrative: Alert, oriented, in no acute distress. Calm, cooperative, engaged, tired. No psychomotor agitation or neurovegetative retardation. Eye contact maintained. Mood euthymic, animated, affect subdued, mood congruent, no irritability noted. Speech talkative without pressured speech. Thought process linear, coherent, expansive. Thought content related to stressors, denies any hopelessness or SI. Denies any aggressive ideation or HI. No paranoia or delusional content elicited. No evidence of psychosis. Insight and judgment - fair but adequate. Diagnostics Vital Signs (24Hr): BMI result Body Mass Index 35.4 Assessment & Plan Assessment & Plan (1) Autism spectrum: Status: Acute Code(s): F84.0 - Autistic disorder (2) Attention-deficit hyperactivity disorder, unspecified type: Status: Acute Code(s): F90.9 - Attention-deficit hyperactivity disorder, unspecified type (3) Other specified persistent mood disorders: Status: Acute Code(s): F34.89 - Other specified persistent mood disorders Plan Continue PHP continue Vraylar 3 mg qam discontinued venlafaxine 25 mg qd cont nortriptyline 50 mg qd cont clonidine 0.1 mg (1 tab in AM/ 2 tabs at HS) cont oxcarbazepine?300 mg in AM/ 600 mg at HS cont alprazolam 0.75 mg qd prn anxiety cont zolpidem 5 mg qhs prn continue other regular medications: Valsartan 160 mg qd, loratadine 10 mg qd Routine lab work from 04/2024 reviewed EKG, routine for baseline QTc to be ordered, last reviewed from 2020 (QTc 470s) on TCA, SGA UDS as indicated VS reviewed: afebrile, BP 120/84;?96 bpm Continue to monitor Patient educated on: diagnosis and medication risk/benefits Informed Consent: understands Reason for contiued partial hosp. stay Substantial Risk for: inability to function and med/psych decompensation Certification I certify that partial hospital treatment is medically necessary due to the symptoms and problems resulting from the patient's mental illness and the failure to treat the patient at the partial hospital level of care would likely result in the patient requiring inpatient psychiatric care which could not be prevented at a less intensive level of care. Total time managing care of this patient today __30__ minutes. Discharge Plan Discharge Attending provider: Remedios Joe Medications: New cariprazine 3 mg capsule 3 mg PO DAILY Qty: 30 0RF No Action oxcarbazepine 300 mg tablet See Rx Instructions .ROUTE .COMPLEX Rx Instructions: Take one tab in the morning and two tabs at bedtime. alprazolam 0.5 mg tablet 1.5 tab PO DAILY PRN (Reason: Anxiety) zolpidem 10 mg tablet 1 tab PO BEDTIME nortriptyline 25 mg capsule 50 cap PO DAILY clonidine HCl 0.1 mg tablet See Rx Instructions .ROUTE .COMPLEX Rx Instructions: Take one tab in the morning and two tabs at bedtime. venlafaxine 25 mg tablet 25 mg PO DAILY valsartan 160 mg Tablet 160 mg PO DAILY Vraylar 1.5 mg Capsule 1.5 mg PO DAILY loratadine 10 mg Capsule 10 mg PO DAILY Print Language: Upper Sorbian
--- NOTE | 2024-06-20 22:40 | HO.PHPPROGNO ---
Subjective Subjective Date of Service: 06/20/24 Reason For Visit: depression,anxiety Interim History: Patient seen for follow-up, anticipating discharge at the end of program today.? Reports no acute issues or concerns. Medication compliant, medications well-tolerated. Denies any adverse effects.? Mood is stable.? Denies any hopelessness or SI. Denies thoughts of harming self or others at this time. Denies any aggressive ideation or HI. Denies any paranoia or AH or VH. Sleep, appetite, energy stable. Alert, oriented, in no acute distress. Calm, cooperative. Mood stable, affect appropriate. Speech normal. Thought process linear, coherent, more goal-directed. Thought content related to stressors, future-oriented, denies any helplessness, hopelessness or SI.? No aggressive ideation or HI. No paranoia or delusional content elicited. No evidence of psychosis. Insight and judgment fair-good. Discharge from [facility] Continue regular medications Refills sent to pharmacy Will defer further medication management to outpatient provider *Safety plan reviewed *Discharge diagnoses, treatment course, discharge plan have been reviewed with patient (including medication regime, medication management, potential side effects) as well as treatment rationale were also revisited *Discharge paperwork signed and given to patient, copy sent for scanning to chart Diagnostics Vital Signs (24Hr): BMI result Body Mass Index 35.4 Assessment & Plan Certification I certify that partial hospital treatment is medically necessary due to the symptoms and problems resulting from the patient's mental illness and the failure to treat the patient at the partial hospital level of care would likely result in the patient requiring inpatient psychiatric care which could not be prevented at a less intensive level of care. Total time managing care of this patient today ____ minutes. Discharge Plan Discharge Attending provider: Remedios Joe Medications: New cariprazine 4.5 mg capsule 4.5 mg PO BEDTIME Qty: 14 0RF Continued oxcarbazepine 300 mg tablet See Rx Instructions .ROUTE .COMPLEX Rx Instructions: Take one tab in the morning and two tabs at bedtime. alprazolam 0.5 mg tablet 1.5 tab PO DAILY PRN (Reason: Anxiety) zolpidem 10 mg tablet 1 tab PO BEDTIME nortriptyline 25 mg capsule 50 cap PO DAILY clonidine HCl 0.1 mg tablet See Rx Instructions .ROUTE .COMPLEX Rx Instructions: Take one tab in the morning and two tabs at bedtime. valsartan 160 mg Tablet 160 mg PO DAILY loratadine 10 mg Capsule 10 mg PO DAILY Changed venlafaxine 25 mg tablet 12.5 mg PO DAILY Qty: 14 0RF Discontinued Vraylar 1.5 mg Capsule 1.5 mg PO DAILY Patient Education: Mood Disorders (ED), Mood Disorders (DC), ADHD in Adults (DC), Anxiety (ED) Print Language: Arabic
== END 2024-06-20 23:59 | disposition home or self-care (01) ==
LOC: HO.PHPA 09:15
PROVIDERS: Visit Provider Psychiatry & Neurology Psychiatry
DX: F84.0 Autistic disorder (principal); F90.9 Attention-deficit hyperactivity disorder, unspecified type; F34.89 Other specified persistent mood disorders; Z79.899 Other long term (current) drug therapy
CPT/HCPCS: 90791; 90853

== ENCOUNTER 2024-11-18 01:02 | Emergency (ER) | payer BC, OTHER, SELFPAY ==
[2024-11-18 01:13] VITALS: BP 145/86; BP 155/102; PULSE 105; PULSE 108; RESP 16; TEMP 36.9; O2SAT 96; BMI 43.8
[2024-11-18 01:17] VITALS: BP 145/86; PULSE 105; RESP 16; TEMP 36.9; O2SAT 96
--- NOTE | 2024-11-18 01:18 | PC.NURSE ---
pt reports placing nasal patch on his nose to assist wit breathing, reports it has helped . Pt feeling anxious, takes vraylar for anxiety and he did take it today. HR 104, pt states dizziness has resolved. Feels anxiety has reduced since calling ambulance.
--- OUTSIDE RECORDS SUMMARY | 2024-11-18 02:23 | XMS_ITS | Encounter Summary ---
Author Organization [facility] Address [address] [place] [address] Phone Care Team Providers Care Scrum Project Manager Name Role Phone Guilherme Gannon MD Primary Care Provider Fidelina grider Encounter Details Date Type Department Care Team (Late st Contact Info) Description 12/17/2010 Documentation [facility] Family [facility] [address] [place], [place] [phone] Family Medicine, Physician [address] [place] [address] Social History Tobacco Use Types Packs/Day Years [...] on filedocumented in this encounter Care Teams Scrum Project Manager Relationship Specialty Start Date End Date Guilherme Gannon MD PCP - General 10/09/16 05/19/22 documented as of this encounter
--- OUTSIDE RECORDS SUMMARY | 2024-11-18 02:23 | XMS_ITS | Patient Health Record ---
Author Organization [facility] Address [address] [place] [address] Care Team Providers Care Cardiac Monitor Name Role Phone Yaz Tinoco MD Primary Care Provider Pepper Karena Worthy Unavailable [phone] Allergies Allergen (clinical drug ingredient) Drug/Non Drug Allergy documented on EMR Reaction Allergy Type Onset Date Status codeine Codeine hives Drug Allergy Active Reason For Referral No Information Medications Medication SIG (Take, Route, Fr equency, Duration) Notes Start Date End Date Status Abilify 20 MG 1 tablet Orally Once a day; Duration: 30 day(s) Active Fluoxetine 20 MG/5ML as directed Orally Active traZODone HCl 100 MG 1 tablet at bedtime Orally Once a day; Duration: 30 day(s) Activ e Problems Problem Type SNOMED Code ICD Code Onset Dates Problem Status W/U Status Risk Notes Problem Disorder of joint of ankle and/or foot (212725466) Arthritis - Degenerative (719.97) Active confirmed Problem Pain in limb (70908174) Pain in Limb (729.5) Active confirmed Problem Exostosis (82944457) Exostosis (726.91) Active confirmed Plan Of Treatment No Information Insurance Providers Payer Name Payer Address Payer Phone Subscriber Number Group Number Insured Name Patient Relationship to Insured Coverage Start Date Coverage End Date [facility] [id number] [place] [address] [id number] Shant Solano Jr Natural Child - Insured has Financial Responsibility Medical (General) History Medical History History ICD Code autism
--- OUTSIDE RECORDS SUMMARY | 2024-11-18 02:23 | XMS_ITS | Encounter Summary ---
Author Organization [facility] Address [address] [place] [address] Phone Care Team Providers Care Construction Analyst Name Role Phone Guilherme Gannon MD Primary Care Provider Fidelina grider Encounter Details Date Type Department Care Team (Late st Contact Info) Description 12/16/2011 Documentation [facility] Family [facility] [address] [place], [place] [phone] Family Medicine, Physician [address] [place] [address] Social History Tobacco Use Types Packs/Day Years [...] on filedocumented in this encounter Care Teams Construction Analyst Relationship Specialty Start Date End Date Guilherme Gannon MD PCP - General 10/09/16 05/19/22 documented as of this encounter
--- OUTSIDE RECORDS SUMMARY | 2024-11-18 02:23 | XMS_ITS | Clinical Summary ---
Author Organization [facility] Address [address] [place] [address] Phone Care Team Providers Care Manager Wound Care Name Role Phone Unavailable Primary Care Provider [...] of Deafness, No family history of Sudden /[place] under age 55, No family history of [...] AM EDT Pulse - - Temperature 36.1 C (96.9 F) 02/10/2010 12:00 AM EST Respiratory Rate - - Oxygen Saturation - - Inhaled Oxygen Concentration - - Weight 88.9 kg (196 lb) 02/10/2010 12:00 AM EST Height 174.6 cm (5' 8.75 ) 07/05/2009 12:00 AM E DT Body Mass Index 29.15 07/05/2009 12:00 AM EDT Plan of Treatment Health Maintenance Due Date Last Done Comments HPV Vaccines (1 - 3-dose SCDM series) 2016 DTaP,Tdap,and Td Vaccines (7 - Td or Tdap) 07/03/2017 07/04/2007, 08/17/2001, 09/14/1994, Additional history exists Influenza Vaccines (#1) 2024 12/13/2009 COVID-19 Vaccine ( season) 2024 Hepatitis B Vaccines Completed 05/30/1990, 04/01/1990, 01/29/1990 HIB Vaccines Completed 11/04/1990 IPV Vaccines Completed 09/14/1994, 12/30, 1989, Additional history exists MMR Vaccines Completed 09/14/1994, 11/14/1990 Meningococcal Vaccine Completed 08/26/2006 Varicella Vaccines Completed 07/03/2008, 06/21/1995 Hepatitis A Vaccines Aged Out No long er eligible based on patient's age to complete this topic Men B Vaccine Aged Out No longer elig ible based on patient's age to complete this topic Pneumococcal Vaccine Aged Out No long er eligible based on patient's age to complete this topic
--- OUTSIDE RECORDS SUMMARY | 2024-11-18 02:23 | XMS_ITS | Encounter Summary ---
Author Organization [facility] Address [address] [place] [address] Phone Care Team Providers Care Fitness And Wellness Instructor Name Role Phone Guilherme Gannon MD Primary Care Provider Fidelina grider Encounter Details Date Type Department Care Team (Late st Contact Info) Description 08/28/2010 Documentation [facility] [address] [place], [place] [phone] Family Medicine, Physician [address] [place] [address] Social History Tobacco Use Types Packs/Day Years [...] on filedocumented in this encounter Care Teams Fitness And Wellness Instructor Relationship Specialty Start Date End Date Guilherme Gannon MD PCP - General 10/09/16 05/19/22 documented as of this encounter
--- OUTSIDE RECORDS SUMMARY | 2024-11-18 02:23 | XMS_ITS | Encounter Summary ---
Author Organization [facility] Address [address] [place] [address] Phone Care Team Providers Care Facilities Maintenance Assistant Name Role Phone Guilherme Gannon MD Primary Care Provider Fidelina grider Encounter Details Date Type Department Care Team (Late st Contact Info) Description 08/28/2010 Documentation [facility] [address] [place], [place] [phone] Family Medicine, Physician [address] [place] [address] Social History Tobacco Use Types Packs/Day Years [...] on filedocumented in this encounter Care Teams Facilities Maintenance Assistant Relationship Specialty Start Date End Date Guilherme Gannon MD PCP - General 10/09/16 05/19/22 documented as of this encounter
--- OUTSIDE RECORDS SUMMARY | 2024-11-18 02:23 | XMS_ITS | Encounter Summary ---
Author Organization [facility] Address [address] [place] [address] Phone Care Team Providers Care Cooky Packer Name Role Phone Guilherme Gannon MD Primary Care Provider Fidelina grider Encounter Details Date Type Department Care Team (Late st Contact Info) Description 07/06/2011 Documentation [facility] [address] [place], [place] [phone] Family Medicine, Physician [address] [place] [address] Social History Tobacco Use Types Packs/Day Years [...] on filedocumented in this encounter Care Teams Cooky Packer Relationship Specialty Start Date End Date Guilherme Gannon MD PCP - General 10/09/16 05/19/22 documented as of this encounter
--- OUTSIDE RECORDS SUMMARY | 2024-11-18 02:23 | XMS_ITS | Encounter Summary ---
Author Organization [facility] Address [address] [place] [address] Phone Care Team Providers Care General Road Supervisor Name Role Phone Guilherme Gannon MD Primary Care Provider Fidelina grider Encounter Details Date Type Department Care Team (Late st Contact Info) Description 11/18/2009 Documentation [facility] [address] [place], [place] [phone] Family Medicine, Physician [address] [place] [address] Social History Tobacco Use Types Packs/Day Years [...] on filedocumented in this encounter Care Teams General Road Supervisor Relationship Specialty Start Date End Date Guilherme Gannon MD PCP - General 10/09/16 05/19/22 documented as of this encounter
--- OUTSIDE RECORDS SUMMARY | 2024-11-18 02:23 | XMS_ITS | Encounter Summary ---
Author Organization [facility] Address [address] [place] [address] Phone Care Team Providers Care Fund Raiser Name Role Phone Guilherme Gannon MD Primary Care Provider Fidelina grider Encounter Details Date Type Department Care Team (Late st Contact Info) Description 10/15/2016 Conversion Encounter [facility] - [address] [address] Social History Tobacco Use Types Packs/Day Years [...] on filedocumented in this encounter Care Teams Fund Raiser Relationship Specialty Start Date End Date Guilherme Gannon MD PCP - General 10/09/16 05/19/22 documented as of this encounter
[2024-11-18 02:54] LABS: COVID-19 Test Negative (Negative); IDNOW Serial# 55D5AD1C; IDNOW Serial# 58CA691E; Influenza B2 Negative (Negative)
--- NOTE | 2024-11-18 03:06 | ED.ANXIETY ---
HPI - Anxiety General Chief Complaint: Anxiety Stated Complaint: Behavioral Time Seen by Provider: 11/18/24 01:23 Source: patient and EMS Mode of arrival: EMS Limitations: no limitations History of Present Illness ED Provider: Dr. Suzanne Salinas HPI narrative: 34-year-old male with a history of autism spectrum disorder, ADHD presenting with shortness of breath and anxious this ongoing for the last several hours prior to arrival. Patient states that he went to lay down tonight to go to sleep and felt like he could not catch his breath because his sinuses were clogged. He put a breathe right nasal strips on his nose and felt like it did not really help much. Admits he called 911 feeling as though he could not breathe. Describes recent change in his anxiety medications. Reports going from twice daily dosing to once at night. He took his meds at 9:00 p.m. tonight as scheduled. Admits his medications have been a little bit off lately as he has been traveling to the [employer] and has been out late multiple times over the last week. He denies SI or HI. No visual or auditory hallucinations. Does admit to feeling anxious about the side effects of his medications. Admits he has not really talked to his primary care or psychiatrist about this yet. Denies fever but does admit to a cough productive of yellow sputum. No specific known sick contacts. Denies nausea, vomiting, bowel changes or urinary complaints. No lower extremity edema or pain. Related Data Home Medications ?Medication ?Instructions ?Recorded ?Confirmed alprazolam 0.5 mg tablet 1.5 tab PO DAILY PRN Anxiety 01/29/21 06/08/24 nortriptyline 25 mg capsule 50 cap PO DAILY 01/29/21 06/08/24 oxcarbazepine 300 mg tablet See Rx Instructions .Route .COMPLEX 01/29/21 06/08/24 zolpidem 10 mg tablet 1 tab PO BEDTIME Insomnia 01/29/21 06/08/24 clonidine HCl 0.1 mg tablet See Rx Instructions .Route .COMPLEX 04/24/24 06/08/24 loratadine 10 mg capsule 10 mg PO DAILY 06/08/24 06/08/24 valsartan 160 mg tablet 160 mg PO DAILY 06/08/24 06/08/24 Previous Rx's ?Medication ?Instructions ?Recorded cariprazine 4.5 mg capsule 4.5 mg PO BEDTIME #14 caps 06/20/24 venlafaxine 25 mg tablet 12.5 mg (1/2 x 25 mg) PO DAILY #14 06/20/24 tabs Allergies Allergy/AdvReac Type Severity Reaction Status Date / Time codeine (CODEINE) Allergy Unknown Facial Verified 11/18/24 01:16 Swelling, Hives. ibuprofen (From MOTRIN) Allergy Unknown UNKNOWN Verified 11/18/24 01:16 Review of Systems Review of Systems: As per HPI, full review of systems performed and negative but for the above mentioned pertinent positives and negatives. [facility] Past Medical History Medical History Hypertension Flat feet Anxiety Depression Autism Social History Social History Household Members: Family Alcohol intake: never Patient Tobacco Use Status: Never used Tobacco Tobacco use type: Cigarette Smoked in Last 30 Days: No Use of substances other than those prescribed or required for medical reasons: No Substance Use Type: Marijuana Advance Directives: No Advance Directives Information Provided: Yes Physical Exam Exam: Exam: GENERAL: Anxious, no acute distress. SKIN: Normal skin color for ethnicity, warm, dry, intact, no rashes noted. HEENT: Normocephalic, atraumatic, no stridor, posterior oropharynx nonerythematous, dentition intact, EOMI. NECK: Soft, supple, full ROM, midline structures nontender, no step-offs, no deformities, no lymphadenopathy. CHEST: Heart regular tachycardia, no murmurs, symmetric chest rise and fall, no crepitus. PULMONARY: Clear to auscultation bilaterally, no labored breathing, no wheezes/rhales/ rhonchi. ABDOMINAL: Soft, nondistended, nontender, positive bowel sounds in all quadrants. : Deferred. MUSCULOSKELETAL: Normal tone, full range of motion, no deformities, no peripheral edema. NEURO: Alert and oriented x3, CN II through XII intact, equal strength and sensation bilateral upper and lower extremities, no focal neurologic deficits. PSYCHIATRIC: Anxious affect, fluid speech, good eye contact and appropriate demeanor. Vital Signs: Vital Signs: Last Vital Signs Temp 98.5 F 11/18/24 01:17 Pulse 105 H 11/18/24 01:17 Resp 16 11/18/24 01:17 BP 145/86 H 11/18/24 01:17 Pulse Ox 96 11/18/24 01:17 O2 Del Method Room Air 11/18/24 01:17 BMI result Body Mass Index 43.8 Medical Decision Making Medical Decision Making [facility] Narrative: Patient presents with psychologic complaints, anxiety and shortness of breath. Differential diagnosis includes medication noncompliance, influenza, COVID, URI, allergies, depression, anxiety, mood disorder, decompensated mental illnesses such as schizophrenia or bipolar disorder, among many others. He is feeling significantly improved since arriving to the emergency department. His work of breathing is normal. His heart rate has improved and he states he feels better. Awaiting COVID and flu swabs. Very low suspicion for other acute process. Suspect that he did not wait long enough for his nighttime medications to kick in. He recently had a change from twice daily dosing to once a day dosing which obviously is difficult for him to adjust 2. He is not suicidal. Discussed medication regimen questions should be addressed with the people that prescribes these drugs to him. Patient understands and agrees with plan for discharge. Discharged home in stable and improved condition. Differential Diagnosis Differential Diagnoses: The differential diagnosis associated with the presentation includes (As above) Admission/Observation Consideration of admission/observation: Escalation of care including admission/observation considered Lab Data [facility] Lab Attestation statement: I reviewed the patient's lab results. Labs: Lab Results 11/18/24 Range/Units 02:27 COVID-19 (GEOVANY) Negative (Negative) COVID-19 Clin Com See Note Influenza Type A (NAOMY) Negative (Negative) Influenza Type B (NAOMY) Negative (Negative) Influenza A & B Note See Note Independent Historian Clinical information obtained from an independent historian. History obtained from or confirmed by: EMS External Record Review External record reviewed: Inpatient record Chronic Conditions Patient?s care impacted by: Other (Autism spectrum disorder, depression, anxiety) Social Determinants Patient?s care significantly limited by Social Determinants of Health including: Other Social Determinant of Health Discharge Plan Discharge Clinical Impression: Acute anxiety, Hyperventilation Patient Disposition: Home, Self-Care Instructions: Anxiety (ED) Additional Instructions: Please follow-up with your psychiatrist and primary care doctors regarding the medications that you take for anxiety and depression. You can return to the emergency department at any time and for any reason. Continue to take your medications as prescribed. Return to the ER with any new or worsening symptoms. Prescriptions: No Action oxcarbazepine 300 mg tablet See Rx Instructions .ROUTE .COMPLEX Rx Instructions: Take one tab in the morning and two tabs at bedtime. alprazolam 0.5 mg tablet 1.5 tab PO DAILY PRN (Reason: Anxiety) zolpidem 10 mg tablet 1 tab PO BEDTIME nortriptyline 25 mg capsule 50 cap PO DAILY clonidine HCl 0.1 mg tablet See Rx Instructions .ROUTE .COMPLEX Rx Instructions: Take one tab in the morning and two tabs at bedtime. valsartan 160 mg Tablet 160 mg PO DAILY loratadine 10 mg Capsule 10 mg PO DAILY cariprazine 4.5 mg capsule 4.5 mg PO BEDTIME Qty: 14 0RF venlafaxine 25 mg tablet 12.5 mg PO DAILY Qty: 14 0RF Print Language: [place]
[2024-11-18 03:24] VITALS: BP 144/90; PULSE 99; RESP 16; TEMP 36.9; O2SAT 95
[2024-11-18 03:25] VITALS: BP 144/90; PULSE 99; RESP 16; TEMP 36.9; O2SAT 95
== END 2024-11-18 03:47 | disposition home or self-care (01) ==
PROVIDERS: Emergency Provider Emergency Medicine
DX: R06.4 Hyperventilation (principal); F41.9 Anxiety disorder, unspecified; R06.02 Shortness of breath; Z03.818 Encounter for observation for suspected exposure to other biological agents ruled out; Z79.899 Other long term (current) drug therapy
CPT/HCPCS: 87502; 87635; 99283; 99284